=== PATIENT | female | born 1960 | race Caucasian/White ===

== ENCOUNTER 2018-08-23 10:14 | Day surgery (SDC) | payer BC, MEDICAID ==
[~2018-08-23 10:14] MED LIST: Lactated Ringers 1,000 ML IV SCH; Levofloxacin/Dextrose 5%-Water 750 MG in Premix Bag 1 BAG IV ONE
--- NOTE | 2018-08-23 10:45 | PCM.POSTAN ---
POST ANESTHESIA ASSESSMENT - MENTAL STATUS Mental Status: Alert, Oriented - RESPIRATORY Respiratory Status: Respiratory Rate WNL, Airway Patent, O2 Saturation Stable - CARDIOVASCULAR CV Status: Pulse Rate WNL, Blood Pressure Stable - GASTROINTESTINAL GI Status: No Symptoms - POST OP HYDRATION Hydration Status: Adequate & Stable
--- NOTE | 2018-08-23 10:47 | PCM.PREANE ---
Preanesthetic Assessment - Anesthesia/Transfusion/Family Hx Anesthesia History: Prior Anesthesia Without Reaction Family History of Anesthesia Reaction: No Transfusion History: No Prior Transfusion(s) - Review of Systems General: No Symptoms Pulmonary: No Symptoms Cardiovascular: No Symptoms Gastrointestinal: No Symptoms Neurological: No Symptoms Other: Reports: None - Physical Assessment NPO Status Date: 08/22/18 O2 Sat by Pulse Oximetry: 98 Respiratory Rate: 16 Vital Signs: Last Vital Signs Temp 98.1 F 08/23/18 10:35 Pulse 64 08/23/18 10:35 Resp 16 08/23/18 10:35 BP 142/68 H 08/23/18 10:35 Pulse Ox 98 08/23/18 10:35 Height: 5 ft 3 in Weight: 61.689 kg ASA Class: 2 Mental Status: Alert & Oriented x3 Airway Class: Mallampati = 1 Dentition: Reports: Normal Dentition ROM/Head Extension: Full Lungs: Clear to Auscultation, Normal Respiratory Effort Cardiovascular: Regular Rate, Regular Rhythm - Allergies Allergies/Adverse Reactions: Allergies Allergy/AdvReac Type Severity Reaction Status Date / Time Penicillins Allergy Rash Verified 08/20/18 09:55 - Blood Blood Available: No - Anesthesia Plan Pre-Op Medication Ordered: None - Acknowledgements Anesthesia Type Planned: General Anesthesia Pt an Appropriate Candidate for the Planned Anesthesia: Yes Alternatives and Risks of Anesthesia Discussed w Pt/Guardian: Yes Pt/Guardian Understands and Agrees with Anesthesia Plan: Yes Additional Comments: PMH: htn, smoker PLAN: GET PreAnesthesia Questionnaire HEENT History: Reports: Other (See Below) Other HEENT History: wears glasses Cardiovascular History: Reports: Hypertension Other Cardiovascular History: HTN in the past, no longer on BP meds Gastrointestinal History: Reports: Other (See Below) Other Gastrointestinal History: occasional heartburn, cholecystitis W[employer] History: Reports: Neurological History: Reports: Migraines - Past Surgical History Head Surgeries/Procedures: Reports: None Musculoskeletal Surgical History: Reports: Other (See Below) Other Musculoskeletal Surgeries/Procedures:: spur removed from rt ankle - SUBSTANCE USE Smoking Status *Q: Current Every Day Smoker Tobacco Use Within Last Twelve Months: Cigarettes Recreational Drug Use History: No - HOME MEDS Home Medications: Home Meds Aspirin [Lo-Dose Aspirin EC] 81 mg PO DAILY 08/20/18 [History] Calcium Carbonate/Vitamin D3 [Calcium 500 + Vit D 400] 2 tab PO DAILY 08/20/18 [ History] Cyanocobalamin (Vitamin B-12) [Vitamin B-12] 500 mcg PO DAILY 08/20/18 [History] [place]-3/DHA/Epa/Fish Oil [Fish Oil 1,000 mg Softgel] 1,000 mg PO DAILY 08/20/18 [History] Vitamin E 100 unit PO DAILY 08/20/18 [History] - CURRENT (IN HOUSE) MEDS Current Meds: Current Medications Lactated Ringer's (Ringers, Lactated) 1,000 mls @ 125 mls/hr IV ASDIRECTED AMBROCIO Discontinued Medications Levofloxacin/Dextrose 750 mg/ (Premix) 150 mls @ 100 mls/hr IV ONETIME ONE Stop: 08/22/18 12:27 Levofloxacin/Dextrose 750 mg/ (Premix) 150 mls @ 100 mls/hr IV ONETIME ONE Stop: 08/23/18 06:29
[2018-08-23] MEDS ORDERED: Levofloxacin/Dextrose 5%-Water 750 MG in Premix Bag 1 BAG IV ONE (11:00)
[2018-08-23] MEDS ORDERED: Lidocaine 2% 5 ML SDV ONE ×2 (11:34→12:48)
[2018-08-23] MEDS ORDERED: Ondansetron 4 MG/2 ML SDV ONE ×2 (11:34→12:48)
[2018-08-23] MEDS ORDERED: Propofol 200 MG/20 ML SDV ONE ×2 (11:34→12:48)
[2018-08-23] MEDS ORDERED: Rocuronium 10 MG/ML 10 ML Syringe ONE ×2 (11:34→12:48)
[2018-08-23] MEDS ORDERED: fentaNYL 250 MCG/5 ML SDV ONE ×2 (11:34→12:48)
[2018-08-23] MEDS ORDERED: Midazolam 1 MG/ML 2 ML SDV ONE ×2 (11:34→12:48)
[2018-08-23] MEDS ORDERED: Bupivacaine 25%/EPINEPHrine/PF 30 ML ONE (11:41)
[2018-08-23] MEDS ORDERED: Phenylephrine/Normal Saline 100 MCG/ML 10 ML Syringe ONE (12:03)
[2018-08-23] MEDS ORDERED: Octyl 2-Cyanoacrylate 1 Tube ONE (12:28)
[2018-08-23] MEDS ORDERED: Neostigmine Methylsulfate 1 MG/ML 5 ML Syringe ONE (12:34)
[2018-08-23] MEDS ORDERED: Glycopyrrolate 0.2 MG/ML SDV ONE ×2 (12:34→12:35)
[2018-08-23] MEDS ORDERED: Ketorolac 30 MG/ML SDV ONE (12:35)
--- NOTE | 2018-08-23 12:53 | PCM.OPNOTE ---
- General Post-Op/Procedure Note Date of Surgery/Procedure: 08/23/18 Operative Procedure(s): lap martha Findings: gb was yellow and green cw chronic cholecystitis; wall is not thickened; [id number] Pre Op Diagnosis: acute and chronic cholecystitis Post-Op Diagnosis: Same Anesthesia Technique: General ET Tube Primary Surgeon: Maximus Sandoval Pathology: sent Complications: None Condition: Good Free Text/Narrative:: Intake & Output 08/22/18 08/23/18 08/23/18 22:59 06:59 14:59 Output Total 35 Balance -35
[2018-08-23] MEDS ORDERED: Atropine 1 MG/ML SDV IVPUSH PRN ×2 (13:05)
[2018-08-23] MEDS ORDERED: EPINEPHrine 1 MG/1 ML Amp IVPUSH PRN (13:05)
[2018-08-23] MEDS ORDERED: fentaNYL 100 MCG/2 ML SDV IVPUSH PRN (13:05)
[2018-08-23] MEDS ORDERED: 50% Dextrose in Water 50 ML Syringe IVPUSH PRN (13:05)
[2018-08-23] MEDS ORDERED: Acetaminophen 1,000 MG in Premix Bag 1 BAG IV ONE (13:05)
[2018-08-23] MEDS ORDERED: Naloxone 0.4 MG/ML Syringe IVPUSH PRN (13:05)
[2018-08-23] MEDS ORDERED: Albuterol 0.083% 2.5 MG/3 ML Neb Soln NEB PRN (13:05)
[2018-08-23] MEDS ORDERED: Acetaminophen/oxyCODONE 325-5 MG Tab PO PRN (13:06)
[2018-08-23] MEDS: HYDROmorphone 2 MG/ML Syringe IVPUSH ONE ×2 (13:09→13:19)
--- NOTE | 2018-08-23 14:03 | OR ---
SURGEON: Maximus Sandoval MD DATE OF PROCEDURE: 08/23/2018 PREOPERATIVE DIAGNOSIS: Chronic and acute cholecystitis. POSTOPERATIVE DIAGNOSIS: Chronic and acute cholecystitis. PROCEDURE PERFORMED: Laparoscopic cholecystectomy. INTRAOPERATIVE FINDINGS: Gallbladder is yellow and green consistent with chronic cholecystitis and wall is not thickened, and after surgery, piece of Surgicel inserted for hemostasis. PROCEDURE IN DETAIL: The patient was taken to the operating room and placed in the supine position. After the intubation of general endotracheal anesthesia, the patient's abdomen was prepped and draped in the usual sterile fashion. Using LogicLadder, a 12 mm trocar was placed supraumbilically and then followed with pneumoperitoneum. A 5 mm trocar was placed in the epigastrium and two 5 mm trocars placed in the right upper quadrant. The placement of the last three trocars was done under direct video supervision. Upon gaining entrance to the abdominal cavity, an extensive examination was then performed. The gallbladder was located and identified and retracted to the dome of the liver at the triangle of Calot. The cystic duct was clipped three more times and then using the endoscopic clip, was transected with placement of the endoscopic clip and transection was performed with care, ensuring the posterior prong of the instruments were clearly visualized prior to exercising the procedure. The gallbladder was dissected using electrocautery out of the liver bed and then removed using endoscopic bag through the umbilical site. The gallbladder was removed en bloc and there was no bile spillage and this was then followed with extensive irrigation until the bile was clear from blood and bile. The trocars were then removed under direct video supervision. The 12 mm umbilical site was then closed with deep stitches using 0 Vicryl followed with proximal stitches using 3-0 Vicryl and Dermabond. The other three trocar sites were closed with 3-0 Vicryl followed with approximation of skin with Dermabond. The patient was then awakened and extubated and transferred to the recovery room in hemodynamically stable condition. At the conclusion of the surgery, before closing the abdominal wound, instrument count and sponge count were done and were correct. At the end of surgery, piece of Surgicel was inserted for hemostasis. The patient tolerated the procedure well and there were no intraoperative complications. Dr. Sandoval was present through the whole procedure. Just before surgery, a timeout was called. The patient was identified and procedure identified and procedure started. BIANCA / MELISSA /[id number]
--- NOTE | 2018-08-23 15:08 | PCM.POSTAN ---
POST ANESTHESIA ASSESSMENT - MENTAL STATUS Mental Status: Alert, Oriented - RESPIRATORY Respiratory Status: Respiratory Rate WNL, Airway Patent, O2 Saturation Stable - CARDIOVASCULAR CV Status: Pulse Rate WNL, Blood Pressure Stable - GASTROINTESTINAL GI Status: No Symptoms - PAIN Pain Score: 5 - POST OP HYDRATION Hydration Status: Adequate & Stable
[2018-08-23] MEDS ORDERED: Promethazine 12.5 MG Supp RECTAL ONE (15:57)
[2018-08-23] MEDS ORDERED: diphenhydrAMINE 50 MG/ML SDV IVPUSH PRN (16:41)
[2018-08-23] MEDS ORDERED: Ondansetron 4 MG/2 ML SDV IVPUSH PRN (16:42)
--- NOTE | 2018-08-23 17:31 | PCM48HPAN ---
Post Anesthesia Note - EVALUATION WITHIN 48HRS OF ANESTHETIC Vital Signs in Normal Range: Yes Patient Participated in Evaluation: Yes Respiratory Function Stable: Yes Airway Patent: Yes Cardiovascular Function Stable: Yes Hydration Status Stable: Yes Pain Control Satisfactory: Yes Nausea and Vomiting Control Satisfactory: Yes Mental Status Recovered: Yes Resp Rate: 14 - COMMENTS/OBSERVATIONS Free Text/Narrative:: Pt states nausea is finally feeling better and pain is better controlled. Her is here to take her home. No apparent anesthesia complications.
== END 2018-08-23 18:00 | disposition home or self-care (01) ==
LOC: MW.SDS 10:14
PROVIDERS: ATTEND Surgery
DX: K80.10 Calculus of gallbladder with chronic cholecystitis without obstruction (principal); I10 Essential (primary) hypertension; F17.210 Nicotine dependence, cigarettes, uncomplicated; Z79.82 Long term (current) use of aspirin; Z79.899 Other long term (current) drug therapy; Z88.0 Allergy status to penicillin
CPT/HCPCS: 47562; A9270; J0131; J1170; J1200; J1885; J1956; J2001; J2250; J2370; J2405; J2704; J3010; J3490; J7120

== ENCOUNTER 2018-09-28 07:33 | Day surgery (SDC) | payer MEDICAID ==
[~2018-09-28 07:33] MED LIST changes: -Levofloxacin/Dextrose 5%-Water 750 MG in Premix Bag 1 BAG IV ONE
--- NOTE | 2018-09-28 09:25 | PCM.PREANE ---
Preanesthetic Assessment - Anesthesia/Transfusion/Family Hx Anesthesia History: Prior Anesthesia Without Reaction Family History of Anesthesia Reaction: No Transfusion History: No Prior Transfusion(s) Intubation History: Unknown - Review of Systems General: No Symptoms Pulmonary: No Symptoms Cardiovascular: No Symptoms Gastrointestinal: No Symptoms (no colorectal symptoms, acid reflux), Other ( screenig colonoscopy) Neurological: No Symptoms Other: Reports: None - Physical Assessment O2 Sat by Pulse Oximetry: 100 Respiratory Rate: 18 Vital Signs: Last Vital Signs Temp 36.8 C 09/28/18 08:45 Pulse 70 09/28/18 08:45 Resp 18 09/28/18 08:45 BP 120/79 09/28/18 08:45 Pulse Ox 100 09/28/18 08:45 Height: 1.6 m Weight: 61.689 kg ASA Class: 2 Mental Status: Alert & Oriented x3 Airway Class: Mallampati = 2 Dentition: Reports: Normal Dentition Thyro-Mental Finger Breadths: 2 Mouth Opening Finger Breadths: 2 ROM/Head Extension: Full Lungs: Clear to Auscultation, Normal Respiratory Effort Cardiovascular: Regular Rate, Regular Rhythm - Allergies Allergies/Adverse Reactions: Allergies Allergy/AdvReac Type Severity Reaction Status Date / Time oxycodone Allergy Nausea and Verified 09/25/18 09:41 Vomiting Penicillins Allergy Rash Verified 09/25/18 07:30 - Blood Blood Available: No - Anesthesia Plan Pre-Op Medication Ordered: None - Acknowledgements Anesthesia Type Planned: MAC Pt an Appropriate Candidate for the Planned Anesthesia: Yes Alternatives and Risks of Anesthesia Discussed w Pt/Guardian: Yes Pt/Guardian Understands and Agrees with Anesthesia Plan: Yes PreAnesthesia Questionnaire HEENT History: Reports: Other (See Below) Other HEENT History: wears glasses Cardiovascular History: Reports: Hypertension Other Cardiovascular History: HTN in the past, no longer on BP meds Respiratory History: Reports: None Gastrointestinal History: Reports: None Genitourinary History: Reports: None [employer]PER History: Reports: Musculoskeletal History: Reports: None Neurological History: Reports: Migraines (twice a week) Psychiatric History: Reports: None Endocrine/Metabolic History: Reports: None Hematologic History: Reports: None Immunologic History: Reports: None Oncologic (Cancer) History: Reports: None Dermatologic History: Reports: None - Past Surgical History Head Surgeries/Procedures: Reports: None Respiratory Surgical History: Reports: None GI Surgical History: Reports: Cholecystectomy Other GI Surgeries/Procedures: lap martha on 08/23/18 Female Surgical History: Reports: None Endocrine Surgical History: Reports: None Neurological Surgical History: Reports: None Musculoskeletal Surgical History: Reports: Other (See Below) Other Musculoskeletal Surgeries/Procedures:: spur removed from rt ankle Dermatological Surgical History: Reports: None - SUBSTANCE USE Smoking Status *Q: Current Every Day Smoker (1/2 ppd) Tobacco Use Within Last Twelve Months: Cigarettes Recreational Drug Use History: No - HOME MEDS Home Medications: Home Meds Aspirin [Lo-Dose Aspirin EC] 81 mg PO DAILY 08/20/18 [History] Calcium Carbonate/Vitamin D3 [Calcium 500 + Vit D 400] 2 tab PO DAILY 08/20/18 [ History] Cyanocobalamin (Vitamin B-12) [Vitamin B-12] 500 mcg PO DAILY 08/20/18 [History] [place]-3/DHA/Epa/Fish Oil [Fish Oil 1,000 mg Softgel] 1,000 mg PO DAILY 08/20/18 [History] Vitamin E 100 unit PO DAILY 08/20/18 [History] Naproxen Sodium [Aleve] 1 tab PO ASDIRECTED PRN 09/25/18 [History] - CURRENT (IN HOUSE) MEDS Current Meds: Current Medications Lactated Ringer's (Ringers, Lactated) 1,000 mls @ 125 mls/hr IV ASDIRECTED AMBROCIO Last Admin: 09/28/18 08:55 Dose: 125 mls/hr
[2018-09-28] MEDS ORDERED: Lidocaine 2% 5 ML SDV ONE (10:53)
[2018-09-28] MEDS ORDERED: Midazolam 1 MG/ML 2 ML SDV ONE (10:53)
[2018-09-28] MEDS ORDERED: fentaNYL 100 MCG/2 ML SDV ONE (10:53)
[2018-09-28] MEDS ORDERED: Propofol 200 MG/20 ML SDV ONE (10:54)
[2018-09-28] MEDS ORDERED: Phenylephrine/Normal Saline 100 MCG/ML 10 ML Syringe ONE (11:16)
[2018-09-28] MEDS ORDERED: Glycopyrrolate 0.2 MG/ML SDV ONE (11:20)
--- NOTE | 2018-09-28 11:26 | PCM.OPNOTE ---
- General Post-Op/Procedure Note Date of Surgery/Procedure: 09/28/18 Operative Procedure(s): colonoscopy Findings: see dict [id number] Pre Op Diagnosis: screen colonoscopy Post-Op Diagnosis: hemorrhoid Anesthesia Technique: Moderate Sedation Primary Surgeon: Maximus Sandoval Complications: None Condition: Good
--- NOTE | 2018-09-28 12:06 | PCM.POSTAN ---
POST ANESTHESIA ASSESSMENT - MENTAL STATUS Mental Status: Alert, Oriented - RESPIRATORY Respiratory Status: Respiratory Rate WNL, Airway Patent, O2 Saturation Stable - CARDIOVASCULAR CV Status: Pulse Rate WNL, Blood Pressure Stable - GASTROINTESTINAL GI Status: No Symptoms - PAIN Pain Score: 0 - POST OP HYDRATION Hydration Status: Adequate & Stable
--- NOTE | 2018-09-28 16:05 | OR ---
SURGEON: Maximus Sandoval MD DATE OF PROCEDURE: 09/28/2018 PREOPERATIVE DIAGNOSIS: Screening colonoscopy. POSTOPERATIVE DIAGNOSIS: Hemorrhoid. PROCEDURE PERFORMED: Colonoscopy. DESCRIPTION OF PROCEDURE: The patient was taken to the endoscopy room. A time out was called, patient identified, and procedure identified. Diprivan was then administrated. Patient went from awake to sleep, hearing doctor talking or door closing is normal. Perineum inspection and digital examination were then performed. A well- lubricated colonoscope was gently inserted through the rectum, advanced past the rectosigmoid junction, the descending colon, splenic flexure, transverse colon, hepatic flexure, ascending colon, arrived to the cecum. Cecum was identified as dictated in the finding. Then the scope was carefully withdrawn while attention was paid to the mucosal surface for any abnormality. Air will be sucked out during the scope withdrawal. At the rectum, retroflexed to examine any rectal diseases, fistula or hemorrhoids. Patient tolerated procedure well. There were no intraoperative complications, and Dr. Sandoval was present throughout the whole procedure. FINDINGS: 1. The patient is easily sedated with BARREL POLISHER and Diprivan, the patient is soundly snoring. 2. Bowel prep is average to good, very little liquid stool, no semi-formed stool. 3. Colon rather straightforward. Cecum indicated by ileocecal fold, one-to- one indentation, and appendiceal orifice. Light emittance is not observed. Mucosa examined upon scope pulling out. The patient does not have diverticulosis, polyp, mass, growth, inflammation, stricture, AV malformation, bleeding, ulceration, none of those. The patient did have moderate external hemorrhoid and mild internal hemorrhoid. PLAN: The patient would benefit from repeat colonoscopy in 10 years from today or if clinically indicated otherwise. BIANCA / MELISSA /[id number]
== END 2018-09-28 12:55 | disposition home or self-care (01) ==
LOC: MW.SDS 07:33
PROVIDERS: ATTEND Surgery
DX: Z12.11 Encounter for screening for malignant neoplasm of colon (principal); K64.4 Residual hemorrhoidal skin tags; K64.8 Other hemorrhoids; Z88.1 Allergy status to other antibiotic agents; Z88.5 Allergy status to narcotic agent; I10 Essential (primary) hypertension; F17.210 Nicotine dependence, cigarettes, uncomplicated; Z79.82 Long term (current) use of aspirin
CPT/HCPCS: 45378; J2001; J2250; J2370; J2704; J3010; J3490; J7120